=== PATIENT | female | born 1975 | race Two or more races ===

== ENCOUNTER 2025-01-30 16:18 | Emergency (ER) | payer OTHER ==
[2025-01-30] MEDS: Sodium Chloride 0.9% 1,000 ML IV SCH (17:49)
[2025-01-30] MEDS: Sodium Chloride 0.9% 10 ML Syringe FLUSH PRN (17:50)
[2025-01-30] MEDS: Iopamidol 612 MG/ML 100 ML Bottle IVPUSH ONE (17:50)
[2025-01-30] MEDS: Sodium Chloride 0.9% 10 ML Syringe FLUSH ONE (18:30)
[2025-01-30 18:34] LABS: APPEARANCE,URINE CLEAR (Clear); BILIRUBIN,URINE NEGATIVE (Negative); COLOR,URINE YELLOW (Yellow); GLUCOSE,URINE NEGATIVE (Negative); KETONES,URINE NEGATIVE (Negative); LEUKOCYTE ESTERASE,URINE TRACE (Negative); NITRITE,URINE NEGATIVE (Negative); OCCULT BLOOD,URINE NEGATIVE (Negative); PH,URINE 7.5 (5.0-8.0); PROTEIN,URINE NEGATIVE (Negative); UROBILINOGEN,URINE 0.2 (0.2-1.0)
[2025-01-30 19:03] LABS: BACTERIA,URINE FEW /hpf (FEW); MUCUS,URINE FEW /hpf (FEW); RBC,URINE 0-5 /hpf (0-5)
[2025-01-30] MEDS: predniSONE 20 MG Tab PO ONE (19:22)
== END 2025-01-30 19:15 | disposition home or self-care (01) ==
LOC: JD.ED 16:18
DX: M54.41 Lumbago with sciatica, right side (principal); E11.9 Type 2 diabetes mellitus without complications; Z79.84 Long term (current) use of oral hypoglycemic drugs; Z79.899 Other long term (current) drug therapy
CPT/HCPCS: 72132; 81001; 99284; J7030; J7512; Q9967